=== PATIENT | female | born 1940 | race African-American/Black ===

== ENCOUNTER → 2017-02-26 | Outpatient (CLI) | payer OTHER ==
[~2017-02-26] MED LIST: GLUCOPHAGE500 MG PO
== END | disposition home or self-care (01) ==
LOC: RAD 12:41 → EDSTATUS 13:00 → RAD 13:00
DX: I70.8 Atherosclerosis of other arteries (principal); I25.10 Atherosclerotic heart disease of native coronary artery without angina pectoris; I51.7 Cardiomegaly; R94.39 Abnormal result of other cardiovascular function study
CPT/HCPCS: 75571

== ENCOUNTER 2017-04-19 09:06 | Day surgery (SDC) | payer OTHER ==
[~2017-04-19] VITALS: Ht 149.9 cm; Wt 65.8 kg
[~2017-04-19 09:06] MED LIST changes: +ASPIR-LOW81 MG PO; +CARVEDILOL25 MG PO; +FERROUS SULFAT325 MG PO; +GLUCOPHAGE1000 MG PO; -GLUCOPHAGE500 MG PO; +HYDROCHLOROTHIA25 MG PO; +PANTOPRAZOLE SO40 MG PO; +ROSUVASTATIN CA10 MG PO
[2017-04-19] MEDS ORDERED: ASPIRIN325 MG PO (09:40)
[2017-04-19 09:59] LABS: POINT-OF-CARE METER ID UU13113696
== END 2017-04-19 17:50 | disposition home or self-care (01) ==
LOC: CATH 09:06
PROVIDERS: Internal Medicine Interventional Cardiology
DX: I25.10 Atherosclerotic heart disease of native coronary artery without angina pectoris (principal); I34.0 Nonrheumatic mitral (valve) insufficiency; E11.9 Type 2 diabetes mellitus without complications; I10 Essential (primary) hypertension; E78.2 Mixed hyperlipidemia; J45.909 Unspecified asthma, uncomplicated; E66.9 Obesity, unspecified; Z68.30 Body mass index [BMI] 30.0-30.9, adult; Z79.84 Long term (current) use of oral hypoglycemic drugs; Z88.0 Allergy status to penicillin
CPT/HCPCS: 82948; 93005; C1769; C1887; J0153; J1644; J2250; J3010